=== PATIENT | female | born 1960 ===

== ENCOUNTER 2016-10-01 | Inpatient (IN) | payer MEDICARE ==
[2016-10-01] MEDS ORDERED: SYMBICORT 16010.2 GM INH (03:26)
[2016-10-01] MEDS ORDERED: SPIRIVA18 MCG INH (03:26)
[2016-10-01] MEDS ORDERED: TRAZODONE HCL50 MG PO (03:27)
[2016-10-01] MEDS ORDERED: LIORESAL TAB 1010 MG PO (03:28)
[2016-10-01] MEDS ORDERED: SUBOXONE 8 MG-1 EACH PO (03:30)
[2016-10-01] MEDS ORDERED: PROZAC40 MG PO (03:30)
[2016-10-01] MEDS ORDERED: NEURONTIN 400400 MG PO (03:31)
[2016-10-01] MEDS ORDERED: MICROZIDE12.5 MG PO (03:31)
[2016-10-01] MEDS ORDERED: IBUPROFEN600 MG PO (03:32)
[2016-10-01] MEDS ORDERED: LISINOPRIL10 MG PO (03:32)
[2016-10-01] MEDS ORDERED: CLARITIN10 MG PO (03:33)
[2016-10-01] MEDS ORDERED: MUCINEX600 MG PO (03:33)
[2016-10-01] MEDS ORDERED: HABITROL 14 MG P1 EA TD (03:34)
[2016-10-01] MEDS ORDERED: PRILOSEC OTC20 MG PO (03:35)
[2016-10-01 08:27] LABS: HEMOGLOBIN 11.3 gm/dl (12.3-15.3); RED BLOOD COUNT 4.06 M/UL (4.00-5.10); WHITE BLOOD COUNT 11.3 K/UL (4.5-11.0)
[2016-10-01 08:42] LABS: BUN/CREATININE RATIO 34 (0-10)
[2016-10-02 04:22] LABS: WHITE BLOOD COUNT 9.9 K/UL (4.5-11.0)
[2016-10-02 04:23] LABS: HEMOGLOBIN 9.1 gm/dl (12.3-15.3); RED BLOOD COUNT 3.32 M/UL (4.00-5.10)
[2016-10-02 04:42] LABS: BUN/CREATININE RATIO 32 (0-10)
[2016-10-03 04:19] LABS: HEMOGLOBIN 9.3 gm/dl (12.3-15.3); RED BLOOD COUNT 3.39 M/UL (4.00-5.10)
[2016-10-03 04:21] LABS: WHITE BLOOD COUNT 7.3 K/UL (4.5-11.0)
[2016-10-03 04:49] LABS: BUN/CREATININE RATIO 30 (0-10)
[2016-10-03] MEDS ORDERED: CLINDAMYCIN HC300 MG PO (10:15)
[2016-10-03] MEDS ORDERED: VENTOLIN/PROVE0.5 ML INH (10:25)
[2016-10-03] MEDS ORDERED: SPIRIVA HANDIH18 MCG INH (10:26)
[2016-10-03] MEDS ORDERED: ROBITUSSIN DM473 ML PO (11:00)
[2016-10-03] MEDS ORDERED: FERROUS SULFAT325 MG PO (11:02)
[2016-10-03] MEDS ORDERED: THERAGRAN M TAB1 EA PO (11:04)
[2016-10-03] MEDS ORDERED: MEDROL DOSEPAK 24 MG PO (11:05)
== END 2016-10-03 11:45 | disposition home or self-care (01) | DRG 178 ==
PROVIDERS: Internal Medicine Infectious Disease; ADMIT Internal Medicine
DX: J69.0 Pneumonitis due to inhalation of food and vomit (principal); J44.1 Chronic obstructive pulmonary disease with (acute) exacerbation; F11.20 Opioid dependence, uncomplicated; D50.9 Iron deficiency anemia, unspecified; I95.9 Hypotension, unspecified; B02.9 Zoster without complications; M51.36 Other intervertebral disc degeneration, lumbar region; G89.4 Chronic pain syndrome; F17.210 Nicotine dependence, cigarettes, uncomplicated; F32.9 Major depressive disorder, single episode, unspecified; F41.9 Anxiety disorder, unspecified; Z87.01 Personal history of pneumonia (recurrent); Z99.81 Dependence on supplemental oxygen; Z79.51 Long term (current) use of inhaled steroids; Z79.899 Other long term (current) drug therapy; Z88.3 Allergy status to other anti-infective agents; Z88.0 Allergy status to penicillin; Z88.5 Allergy status to narcotic agent; Z82.49 Family history of ischemic heart disease and other diseases of the circulatory system
CPT/HCPCS: 36415; 71020; 80048; 82607; 82728; 82746; 83540; 83550; 83880; 84443; 85025; 85027; 87040; 87081; 87278; 94640; 94664; J1040; J1650; J2920; J3370; J7030; J7050; J7070